=== PATIENT | female | born 1955 | race Caucasian/White ===

== ENCOUNTER 2018-11-04 19:19 | Emergency (ER) | payer SELFPAY ==
[~2018-11-04] VITALS: Ht 170.2 cm; Wt 92.0 kg
[2018-11-04 22:18] VITALS: BP 144/71
== END 2018-11-04 22:22 | disposition home or self-care (01) | DRG 605 ==
LOC: ED 19:19
DX: S80.11XA Contusion of right lower leg, initial encounter (principal); F17.210 Nicotine dependence, cigarettes, uncomplicated; W19.XXXA Unspecified fall, initial encounter; Z86.718 Personal history of other venous thrombosis and embolism

== ENCOUNTER 2019-03-03 13:34 | Emergency (ER) | payer SELFPAY ==
[~2019-03-03] VITALS: Ht 170.2 cm; Wt 90.0 kg
[2019-03-03 15:17] LABS: URINE BILIRUBIN - DIPSTICK NEGATIVE (NEGATIVE); URINE BLOOD DIPSTICK MODERATE (NEGATIVE); URINE COLOR YELLOW; URINE GLUCOSE - DIPSTICK NEGATIVE (NEGATIVE); URINE KETONE NEGATIVE (NEGATIVE); URINE PH 5.5 (4.5-8.0); URINE PROTEIN - DIPSTICK 30 mg/dL (NEG-TRACE)
[2019-03-03 15:20] LABS: HEMATOCRIT 44.4 % (37.0-47.0); HEMOGLOBIN 14.5 g/dl (12.0-16.0); IMMATURE GRANULOCYTES 0.4 % (0.0-5.0); MEAN CELL VOLUME 85.1 fL CALC (80.0-100.0); MEAN CORPUSCULAR HGB 27.8 pG CALC (26.0-32.0); MEAN CORPUSCULAR HGB CONC 32.7 g/L CALC (32.0-36.0); NEUT# 6.07 thou/uL (2.00-7.15); RED BLOOD COUNT 5.22 mill/uL (4.20-5.60); RED CELL DISTRI WIDTH 12.7 % (11.5-15.5)
[2019-03-03 15:20] LABS: URINE LEUK ESTERASE MODERATE (NEGATIVE); URINE NITRITE - DIPSTICK POSITIVE (Negative)
[2019-03-03 15:30] LABS: URINE BACTERIA FEW hpf; URINE SQUAMOUS EPITHELIAL CELL FEW EPI/hpf (0-FEW); URINE WBC TNTC WBC/hpf (0-5)
[2019-03-03 15:33] LABS: ALBUMIN 4.3 g/dL (3.2-5.0); ALKALINE PHOSPHATASE 112 u/l (38-126); ANION GAP 14 (6-22 (CALC)); BILIRUBIN, TOTAL 0.9 mg/dL (0.0-1.4); BUN 18 mg/dL (8-23); BUN/CREATININE RATIO 16 (12-20 (CALC)); CARBON DIOXIDE 24 mmol/l (22-30); CHLORIDE 103 mmol/l (95-108); CREATININE 1.1 mg/dL (0.5-1.0); GFR 50 ML/MIN (>=60 (CALC)); GFR FOR AFR.AMER. > 60 ML/MIN (>=60 (CALC)); SGOT/AST 25 u/l (9-36); SODIUM 136 mmol/l (137-146); TOTAL PROTEIN 7.8 g/dL (6.3-8.2)
[2019-03-03] MEDS ORDERED: METFORMIN500 MG PO (15:49)
[2019-03-03] MEDS ORDERED: KEFLEX500 M1 PO (16:48)
[2019-03-03] MEDS ORDERED: PYRIDIUM200 MG PO (16:56)
[2019-03-03 17:09] VITALS: BP 126/56
== END 2019-03-03 17:20 | disposition home or self-care (01) | DRG 690 ==
LOC: ED 13:34
DX: N39.0 Urinary tract infection, site not specified (principal); E11.9 Type 2 diabetes mellitus without complications; F17.200 Nicotine dependence, unspecified, uncomplicated; B96.20 Unspecified Escherichia coli [E. coli] as the cause of diseases classified elsewhere
CPT/HCPCS: J0131

== ENCOUNTER 2019-05-02 08:59 | Inpatient (IN) | payer SELFPAY ==
[2019-05-02] VITALS (10 sets, daily range): BP systolic 94–105; BP diastolic 39–52
[~2019-05-02] VITALS: Ht 170.2 cm; Wt 95.4 kg
[~2019-05-02 08:59] MED LIST: KEFLEX500 M1 PO; METFORMIN500 MG PO; PYRIDIUM200 MG PO
--- NOTE | 2019-05-02 09:10 | NUR ---
PATIENT TO ROOM VIA WHEELCHAIR AND PHYSICIAN AT BEDSIDE FOR EVAL
[2019-05-02 09:47] LABS: HEMATOCRIT 43.9 % (37.0-47.0); HEMOGLOBIN 14.5 g/dl (12.0-16.0); IMMATURE GRANULOCYTES 0.9 % (0.0-5.0); MEAN CORPUSCULAR HGB 27.4 pG CALC (26.0-32.0); NEUT# 12.23 thou/uL (2.00-7.15); RED BLOOD COUNT 5.29 mill/uL (4.20-5.60); RED CELL DISTRI WIDTH 13.5 % (11.5-15.5)
[2019-05-02 09:59] LABS: ALBUMIN 3.9 g/dL (3.2-5.0); BILIRUBIN, TOTAL 1.4 mg/dL (0.0-1.4); CREATININE 1.2 mg/dL (0.5-1.0); POTASSIUM 4.5 mmol/l (3.5-5.1); TOTAL PROTEIN 7.3 g/dL (6.3-8.2)
--- NOTE | 2019-05-02 10:14 | NUR ---
REPORT RECIEVED FROM TITI BELL. PT STATES HAVING CHILLS AND REQUESTING ANOTHER BLANKET, PT INFORMED OF CARE PLAN, PT UNDERSTOOD AND MEDICATED. NO OTHER COMPLAINTS STATED AT THIS TIME.
--- NOTE | 2019-05-02 10:41 | NUR ---
PT AMBULATED TO RESTROM AND BACK TO ROOM, PT BECAME NAUSEATED WHILE WALKING. STATES FEELING VERY DIZZY
[2019-05-02 11:06] LABS: URINE BILIRUBIN - DIPSTICK NEGATIVE (NEGATIVE); URINE BLOOD DIPSTICK MODERATE (NEGATIVE); URINE COLOR YELLOW; URINE GLUCOSE - DIPSTICK 100 mg/dL (NEGATIVE); URINE KETONE TRACE mg/dL (NEGATIVE); URINE PROTEIN - DIPSTICK 100 mg/dL (NEG-TRACE); URINE SPECIFIC GRAVITY 1.025
[2019-05-02 11:11] LABS: URINE EPITHELIAL CELLS MANY EPI/hpf (0-FEW); URINE LEUK ESTERASE LARGE (NEGATIVE); URINE NITRITE - DIPSTICK POSITIVE (Negative)
[2019-05-02 11:12] LABS: URINE BACTERIA MANY hpf
--- NOTE | 2019-05-02 11:16 | NUR ---
MMD AT BEDSIDE TO DISCUSS RESULTS.
--- NOTE | 2019-05-02 11:39 | NUR ---
PT NOTIFIED OF 1515 OR APPT, MAINTAINING NPO. LAST ORAL INTAKE WAS 0130
--- NOTE | 2019-05-02 11:45 | NUR ---
SCOTT BELLA AT BEDSIDE.
--- NOTE | 2019-05-02 12:08 | NUR ---
REPORT CALLED TO CHRISTINA SHEPPARD RN ACCEPTED PT
--- NOTE | 2019-05-02 12:15 | NUR ---
Admission Note Report Given to: CHRISTINA BELL Transported by: Wheelchair X Stretcher Transported with: X Nurse Transporter X Patent IV O2 Auto Body Mechanic TRANSPORTED TO [facility] [place] WITHOUT INCIDENT
--- NOTE | 2019-05-02 12:21 | NUR ---
REPORT RECEIVED FROM MARA IN ED, PT ARRIVED ON UNIT @ 1212, ALERT AND ORIENTED X 3, C/O DULL ACHING PAIN @ 3/10 TO BILATERAL FLANK AREAS, ORIENTED TO ROOM AND CALL MORRISON. TRANSPORTED VIA STRETCHER AND AMBULATED TO BED, MEDICAL TEAM ROUNDED, PT IS SETTLED IN BED AT THIS TIME.
--- NOTE | 2019-05-02 14:56 | NUR ---
OR STAFF ILIANA RECEIVING PT FOR PROCEDURE, PT AMBULATED TO STRETCHER AND IS BEING TRANSPORTED OFF UNIT AT THIS TIME.
--- NOTE | 2019-05-02 18:59 | NUR ---
TERESITA (RN) REPORTED HE RECEIVED LAB RESULT FROM CORDELL IN LAB OF LACTIC ACID 2.2, PT IN RECOVERY AT THIS TIME, RECOVERY STAFF AWARE OF RESULTS AND ADDRESSING CONDITIOIN.
--- NOTE | 2019-05-02 19:00 | NUR ---
PT RECEIVED FROM OR VIA STRETCHER ACCOMPANIED BY TWO NURSE. PT ASSISTED INTO BED. PT IS FULLY ALERT AND ORIENTED X3. O2 N/C ON AT 3L. O2 SAT 94%. RESP EVEN AND UNLABORED. LUNGS CLEAR BILAT. ABD SOFT AND NONDISTENDED WITH BOWEL SOUNDS PRESENT. MILLIGAN CATH PLACED IN OR DRAINING CLEAR PALE YELLOW URINE. LEG STRAP IN PLACE. NO LOWER EXT EDEMA NOTED. PEDAL PULSES PALPATED BILAT. SCD'S ARE ON BILAT LOWER EXT. IV SITE PATENT IN OUTER ASPECT OF LEFT A.C. NO REDNESS OR SWELLING AT SITE. IVF NSS AT 125CC/HR. PT DENIES ANY NAUSEA. PT DENIES ANY PAIN OR DISCOMFORT AT THIS TIME. VS 99.7-88-18, 100/39. POST OP INSTRUCTIONS GIVEN. PT ENCOURAGED TO COUGH AND DEEP BREATH. TEACHING DONE ON IMPORTANCE OF USING INSENTIVE SPIROMETRY 10X/HR WHILE AWAKE. RETURN DEMONSTRATION DONE AND PT DOES GET UP TO 1000. PT ASSISTED WITH REPOSITIONING FOR COMFORT. FALL BRACELET APPLIED. NURSE REMAINS AT BEDSIDE WITH PT. ORIENTED TO CALL MORRISON. WILL CONTINUE TO CLOSELY MONITOR. CALL MORRISON WITHIN REACH.
--- NOTE | 2019-05-02 19:30 | NUR ---
RESTING IN BED WITH EYES CLOSED. RESP EVEN AND UNLABORED. TEMP 100. WAITING ON 1899 LACTIC ACID RESULTS. IV SITE PATENT. VS Q 15 MIN. FREQUENT ROUNDS MADE. CALL MORRISON WITHIN REACH.
--- NOTE | 2019-05-02 20:00 | NUR ---
PT IS AWAKE. VS 99.3-82-18, 105/46. O2 SAT 93% ON 3L N/C. WHEN PT DOES SLEEP B/P SYSTOLIC IN THE 90'S. WHEN AWAKE SYSTOLIC B/P LOW 100'S. PT DRINKING WATER WITHOUT ANY NAUSEA. RESP EVEN AND UNLABORED. RESP 18. MILLIGAN CONTINUE TO DRAIN . PT COUGHING AND DEEP BREATHING. PT TALKATIVE AND DENIES ANY DISCOMFORT. 1899 LACTIC RESULT 1.0. NSS INFUSING AT 125CC/HR. WILL CONTINUE TO CLOSELY MONITOR. FREQUENT ROUNDS MADE. CALL MORRISON WITHIN REACH.
--- NOTE | 2019-05-02 20:45 | NUR ---
PT WOKE ACCUCHECK 181. SKIN COOL TO TOUCH. TEMP 98.3. RESP EVEN AND UNLABORED. O2 SAT 93-94%. PT DENIES ANY PAIN. HR 80'S. IV SITE PATENT. TOLERATING WATER WITHOUT ANY DIFFICULTY. SCD'S ON. MILLIGAN IS DRAINING MODERATE AMOUNT OF PALE YELLOW URINE. PT IS DROWSY. FREQUENT ROUNDS MADE. VSS. CALL MORRISON WITHIN REACH.
--- NOTE | 2019-05-02 21:25 | NUR ---
PT WOKE. VSS. TEMP 98.8. RESP EVEN AND UNLABORED. VISITORS AT BEDSIDE. PT IS ALERT AND ORIENTED X3. NO DISTRESS NOTED. ENCOURAGED TO USE INSENTIVE SPIROMETRY WHILE AWAKE 10X/HR. FREQUENT ROUNDS MADE. CALL MORRISON WITHIN REACH.
--- NOTE | 2019-05-02 22:20 | NUR ---
PT WOKE. MEDICATED WITH NOVOLOG ONE UNIT S.Q FOR ACCUCHECK OF 181. PT DENIES ANY DISCOMFORT. IV SITE PATENT. VSS. FREQUENT ROUNDS MADE. CALL MORRISON WITHIN REACH.
--- NOTE | 2019-05-02 23:00 | NUR ---
PT WOKE. B/P 105/50, HR 78, RESP 18. O2 SAT 95% ON 3L . RESP EVEN AND UNLABORED. IV SITE PATENT. MILLIGAN IS DRAINING CLEAR PALE YELLOW URINE. PT ASSISTED WITH REPOSITIONING. SCD'S ON. DENIES ANY DISCOMFORT. FREQUENT ROUNDS MADE. WILL CONTINUE TO CLOSELY MONITOR. CALL MORRISON WITHIN REACH.
[2019-05-03] VITALS (8 sets, daily range): BP systolic 96–133; BP diastolic 43–63
--- NOTE | 2019-05-03 00:10 | NUR ---
TEMP 99.9. SKIN WARM. RESP EVEN AND UNLABORED. B/P IS STABLE. O2 SAT 94-96% ON 3L N/C. DENIES ANY DISCOMFORT. IV NSS AT 125CC/HR. WILL CONTINUE TO MONITOR. FREQUENT ROUNDS MADE. CALL MORRISON WITHIN REACH.
--- NOTE | 2019-05-03 01:05 | NUR ---
TEMP 100.5. HR 90. RESP 18. RESP EVEN AND UNLABORED. MEDICATED WITH TYLENOL 650MG P.O FOR FEVER. BLANKET REMOVED AND ONLY SHEET ON. PT TOLERATING LIQUIDS WITHOUT ANY DIFFICULTY. OFFERS NO COMPLAINTS. B/P IS STABLE. WILL CONTINUE TO CLOSELY MONITOR. FREQUENT ROUNDS MADE. CALL MORRISON WITHIN REACH.
--- NOTE | 2019-05-03 02:05 | NUR ---
PT WOKE. TEMP 99.6, HR 80'S, B/P 96/43. O2 SAT 94-95%. RESP EVEN AND UNLABORED. PT OFFERS NO COMPLAINTS. FREQUENT ROUNDS MADE. CALL MORRISON WITHIN REACH.
--- NOTE | 2019-05-03 03:00 | NUR ---
TEMP 98.7. ASSESSMENT UNCHANGED. CALL MORRISON WITHIN REACH.
--- NOTE | 2019-05-03 04:30 | NUR ---
PT RESTING IN BED WITH EYES CLOSED. RESP EVEN AND UNLABORED. NO DISTRESS NOTED. O2 N/C ON AT 3L. IV SITE PATENT. SKIN COOL TO TOUCH. MILLIGAN IS PATENT DRAINING CLEAR ELVIA URINE. FREQUENT ROUNDS MADE. CALL MORRISON WITHIN REACH.
--- NOTE | 2019-05-03 06:15 | NUR ---
RESTING IN BED WATCHING T.V. ASSESSMENT UNCHANGED. RESP EVEN AND UNLABORED. OFFERS NO COMPLAINTS. SCD'S ON. IV SITE PATENT. CALL MORRISON WITHIN REACH.
[2019-05-03 06:25] LABS: IMMATURE GRANULOCYTES 0.4 % (0.0-5.0); MEAN CELL VOLUME 84.6 fL CALC (80.0-100.0); MEAN CORPUSCULAR HGB 27.4 pG CALC (26.0-32.0); MEAN CORPUSCULAR HGB CONC 32.4 g/L CALC (32.0-36.0); NEUT# 3.86 thou/uL (2.00-7.15); RED BLOOD COUNT 4.02 mill/uL (4.20-5.60); RED CELL DISTRI WIDTH 13.6 % (11.5-15.5)
[2019-05-03 06:46] LABS: CREATININE 1.2 mg/dL (0.5-1.0); POTASSIUM 4.3 mmol/l (3.5-5.1)
--- NOTE | 2019-05-03 10:35 | NUR ---
PT SITTING IN RECLINER, NICOTINE PATCH PLACED TO L POSTERIOR SHOLDER. PT VOICES NO NEEDS OR COMPLAINTS AT THIS TIME. ENCOURAGED IS. CALL LIGHT IN REACH,CONTINUE TO MONITOR.
--- NOTE | 2019-05-03 11:44 | NUR ---
PT SITTING IN CHAIR AT BEDSIDE, PT C/O CHILLS. TEMP 100.9 MEDICATED WITH TYLENOL AT THIS TIME. PT ATE LUNCH, TOLERATED WELL. CALL LIGHT IN REACH,CONTINUE TO MONITOR.
--- NOTE | 2019-05-03 12:14 | NUR ---
PT AMBULATING HALLWAY WITH RECEIVABLE CLERK ON 02, TOLERATING WELL, CONTINUE TO MONITOR.
--- NOTE | 2019-05-03 15:02 | NUR ---
PT RESTING IN BED, C/O L FLANK PAIN, MEDICATED PER SEP. CALL LIGHT IN REACH,CONTINUE TO MONITOR.
--- NOTE | 2019-05-03 18:00 | NUR ---
PT RESTING IN BED, NO SIGNS OF DISTRESS NOTED, RESP EVEN AND UNLABORED. CALL LIGHT IN REACH,CONTINUE TO MONITOR.
--- NOTE | 2019-05-03 19:32 | NUR ---
ASSESSMENT COMPLETED. IV SITE PATENT AND INFUSING ORDERED IVF WELL. MILLIGAN CATHETER INTACT AND DRAINING DRAK YELLOW URINE AT GRAVITY LEVEL. SCD'S IN PLACE TO BLE AND I/S AT BEDSIDE AND IS ENCOURAGED TO DEEP BREATHE AND USE EVERY HOUR WHILE AWAKE. SPO2 95% ON 3LITERS/MIN PER NC AND TITRATED TO 2.5LITERS/MIN AT THIS TIME; WILL CONTINUE TO MONITOR. TEMP 101.3 AND C/O OF FONTENOT AND MEDICATED WITH ORDERED PRN TYLENOL; WILL REASSESS. PT. DECLINES TO ALLOW STAFF TO PLACE COOL PACK TO HEAD. ENCOURAGED TO CALL FOR ANY NEEDS. ICE CHIPS PROVIDED AND LEFT ARM ELEVATED ONTO PILLOW TO ASSIST WITH MILD SWELLING TO HAND AND ARM. CALL LIGHT IS IN REACH. WILL CONTINUE TO MONITOR.
--- NOTE | 2019-05-03 20:55 | NUR ---
MILLIGAN CATHETER EMPTIED OF 1900 MLS OF DARK YELLOW URINE AND STRAINED; NO STONES NOTED. TEMP DOWN TO 99.7. WILL CONTINUE TO MONITOR. ACCUCHECK OBTAINED. SCHED MED GIVEN. SNACK PROVIDED. DECLINES WANTING A SHOWER TONIGHT. PT. STATES,"MAYBE IN THE MORNING."
--- NOTE | 2019-05-03 22:05 | NUR ---
PT. RESTING IN BED WITH EYES CLOSED; RESP. EVEN AND UNLABORED; CALL LIGHT IS IN REACH.
--- NOTE | 2019-05-03 23:30 | NUR ---
PT. RESTING IN BED WITH EYES CLOSED ON RA; AWAKENED AND PT. REPORTS THAT THE OXYGEN WAS GIVING HER A FONTENOT SO SHE REMOVED IT. SPO2 86% ON RA. RE-APPLIED AND TITRATED DOWN TO 2LITERS/MIN AND SPO2 NOW UP TO 91%; DENIES NEEDS.WILL CONTINUE TO MONITOR. CALL LIGHT IS IN REACH. WILL CONTINUE TO MONITOR.
--- NOTE | 2019-05-04 01:35 | NUR ---
PT. RESTING IN BED WITH EYES CLOSED; AWAKENED TO ASSESS TEMP AND WNL AT THIS TIME. DENIES NEEDS AND VOICES NO COMPLAINTS. CALL LIGHT IS IN REACH. WILL CONITNUE TO MONITOR.
[2019-05-04 03:45] VITALS: BP 145/65
--- NOTE | 2019-05-04 03:45 | NUR ---
PT. SITTING UP IN BED WATCHING TV, NO DISTRESS NOTED; REMAINS ON 2LITERS/MIN PER NC AND SPO2 91%. VSS; OFFERED SHOWER AND AGAIN PT. DECLINES AT THIS TIME. WARM WASHCLOTH PROVIDED TO WASH FACE. ENCOURAGED TO CALL FOR ANY NEEDS. CATHETER BAG EMPTIED OF 2100 MLS OF DARK YELLOW URINE. COFFEE PROVIDED. CALL LIGHT IS IN REACH. WILL CONTINUE TO MONITOR.
--- NOTE | 2019-05-04 05:18 | NUR ---
TEMP 100.3 AND MEDICATED WITH ORDERED TYLENOL; WILL REASSESS. DENIES NEEDS. CALL LIGHT IS IN REACH.
[2019-05-04 05:25] LABS: HEMATOCRIT 34.8 % (37.0-47.0); HEMOGLOBIN 11.3 g/dl (12.0-16.0); IMMATURE GRANULOCYTES 0.5 % (0.0-5.0); MEAN CELL VOLUME 83.7 fL CALC (80.0-100.0); MEAN CORPUSCULAR HGB 27.2 pG CALC (26.0-32.0); MEAN CORPUSCULAR HGB CONC 32.5 g/L CALC (32.0-36.0); NEUT# 3.07 thou/uL (2.00-7.15); RED BLOOD COUNT 4.16 mill/uL (4.20-5.60); RED CELL DISTRI WIDTH 13.8 % (11.5-15.5)
[2019-05-04 05:42] LABS: ANION GAP 11 (6-22 (CALC)); BUN 14 mg/dL (8-23); BUN/CREATININE RATIO 14 (12-20 (CALC)); CARBON DIOXIDE 20 mmol/l (22-30); CHLORIDE 109 mmol/l (95-108); GFR 56 ML/MIN (>=60 (CALC)); GFR FOR AFR.AMER. > 60 ML/MIN (>=60 (CALC)); MAGNESIUM 1.8 mg/dL (1.6-2.3); SODIUM 135 mmol/l (137-146)
--- NOTE | 2019-05-04 06:25 | NUR ---
MOM GIVEN TO ASSIST WITH BM; NO DISTRESS NOTED; TEMP REASSESSED AND WNL. ENCOURAGED TO CALL FOR ANY NEEDS. CALL LIGHT IS IN REACH.
--- NOTE | 2019-05-04 07:15 | NUR ---
PT RESTING IN BED, NO SIGNS OF DISTRESS NOTED, RESP EVEN AND UNLABORED. PT ALERT AND ORIENTED X3, EDEMA TO BUE HAS REDUCED. PT STATES HER HANDS NO LONGER FEEL TIGHT. DISCUSSED POC, ENCOURAGED AMBULATION. PT ASSISTED TO RECLINER AT BEDSIDE FOR BREAKFAST, MILLIGAN DRAINGING TO GRAVITY, ASSESSMENT COMPLETED, CALL LIGHT IN REACH,CONTINUE TO MONITOR.
[2019-05-04 07:19] VITALS: BP 114/57
--- NOTE | 2019-05-04 08:27 | NUR ---
ASSISTED PT TO BATHROOM FOR BM, INSTRUCTED TO CALL FOR ASSISTANCE.
--- NOTE | 2019-05-04 08:48 | NUR ---
PRELIMINARY BLOOD CULTURE RESULTS CALLED TO AT [phone] @1547. 0 BOTTLE GROWING GRAM (-) CLARK. URINE CULTURE IS GROWING E.COLI SENSITIVE TO ROCEPHIN, INCREASE DOSE TO 2 GRAMS DAILY.
--- NOTE | 2019-05-04 09:30 | NUR ---
PT RESTING IN BED, DISCUSSED ROCEPHIN INCREASE, PT VERBALIZED UNDERSTANDING. CALL LIGHT IN REACH,CONTINUE TO MONITOR.
--- NOTE | 2019-05-04 10:50 | NUR ---
PT ASSISTED TO RECLINER AT BEDSIDE FOR LUNCH, PT VOICES NO NEEDS OR COMPLAINTS AT THIS TIME. MEDICATED WITH 1 UNIT OF INSULIN. CALL LIGHT IN REACH,CONTINUE TO MONITOR.
--- NOTE | 2019-05-04 12:06 | NUR ---
PT IN RECLINER WATCHING TV, NO SIGNS OF DISTRESS NOTED, RESP EVEN AND UNLABORED. CALL LIGHT IN REACH,CONTINUE TO MONITOR.
--- NOTE | 2019-05-04 14:23 | NUR ---
PT SITTING IN RECLINER REQUESTING TO GET BACK IN BED, VISITOR AT BEDSIDE.
[2019-05-04 16:06] VITALS: BP 160/74
--- NOTE | 2019-05-04 16:40 | NUR ---
PT RESTING IN BED, MEDICATED FOR TEMP, PT C/O PAIN 2/10 MEDICATED WITH ULTRAM. CALL LIGHT IN REACH,CONTINUE TO MONITOR.
[2019-05-04 17:03] VITALS: BP 149/78
[2019-05-04 19:09] VITALS: BP 141/74
--- NOTE | 2019-05-04 19:15 | NUR ---
SITTING UP IN BED WITH NO DISTRESS NOTED;DENIES NEEDS/PAIN. CALL LIGHT IS IN REACH.
--- NOTE | 2019-05-04 20:18 | NUR ---
ASSESSMENT COMPLETED. IV SITE PATENT AND INFUSING ORDERED IVF WELL. UPDATED ON POC. MILLIGAN CATHETER INTACT AND DRAINING AT GRAVITY LEVEL. PT. ON RA AND SPO2 WNL AT THIS TIME; WILL CONTINUE TO MONITOR. TEMP 99.6 AT THIS TIME. ENCOURAGED TO CALL FOR ANY NEEDS. CALL LIGHT IS IN REACH. ENCOURAGED TO USE INCENTIVE SPIROMETER. WILL CONTINUE TO MONITOR.
--- NOTE | 2019-05-04 23:05 | NUR ---
RESTING IN BED ASLEEP AND AWAKENED FOR ASSESSMENT OF TEMP, NOW 98.9; WILL CONTINUE TO MONITOR. DENIES NEEDS. CALL LIGHT IS IN REACH.
--- NOTE | 2019-05-05 00:25 | NUR ---
RESTING IN BED WITH EYES CLOSED;RESP. EVEN AND UNLABORED. CALL LIGHT IS IN REACH.
--- NOTE | 2019-05-05 02:30 | NUR ---
PT. AWAKEND AND C/O FONTENOT AND MEDICATED WITH ORDERED PRN ULTRAM; WILL REASSESS. OFFERED SHOWER AND PT. DECLINES. ENCOURAGED TO CALL FOR ANY NEEDS. CALL LIGHT IS IN REACH.
[2019-05-05 03:40] VITALS: BP 147/70
--- NOTE | 2019-05-05 03:45 | NUR ---
VS OBTAINED; O2 IS OFF AND SPO2 IS 85% AND REAPPLIED O2 AND UPT O 92%.TEMP 100.8 AND CONINUES TO C/O FONTENOT AND MEDICATED WITH ORDERED TYLENOL;WILL REASSESS. PT. ASSISTED INTO SHOWER AND LINENS CHANGED; INSTRUCTED TO PULL CORD WHEN FINISHED.
[2019-05-05 04:44] LABS: HEMATOCRIT 35.9 % (37.0-47.0); HEMOGLOBIN 11.7 g/dl (12.0-16.0); IMMATURE GRANULOCYTES 0.8 % (0.0-5.0); MEAN CELL VOLUME 83.3 fL CALC (80.0-100.0); MEAN CORPUSCULAR HGB 27.1 pG CALC (26.0-32.0); MEAN CORPUSCULAR HGB CONC 32.6 g/L CALC (32.0-36.0); NEUT# 2.6 thou/uL (2.00-7.15); RED BLOOD COUNT 4.31 mill/uL (4.20-5.60); RED CELL DISTRI WIDTH 13.8 % (11.5-15.5)
--- NOTE | 2019-05-05 04:48 | NUR ---
REASSESSED TEMP NOW 96.9 AND PT. REPORTS FONTENOT IS BETTER. PT. ASSISTED TO LAY BACK DOWN AND SCD'S RE-APPLIED. PT. DID A SET OF 10 REPS ON INCENTIVE SPIROMETER AND IS ENCOURAGED TO USE. PT. IS ENCOURAGED TO AMBULATE AND DECLINED POST SHOWER REPORTING THAT SHE WAS TIRED AFTER SHOWERING. ENCOURAGED TO CALL FOR ANY NEEDS. CALL LIGHT IS IN REACH. WILL CONTINUE TO MONITOR.
[2019-05-05 05:06] LABS: ANION GAP 10 (6-22 (CALC)); BUN 13 mg/dL (8-23); BUN/CREATININE RATIO 14 (12-20 (CALC)); CARBON DIOXIDE 23 mmol/l (22-30); CHLORIDE 106 mmol/l (95-108); CREATININE 0.9 mg/dL (0.5-1.0); GFR > 60 ML/MIN (>=60 (CALC)); GFR FOR AFR.AMER. > 60 ML/MIN (>=60 (CALC)); SODIUM 135 mmol/l (137-146)
--- NOTE | 2019-05-05 06:39 | NUR ---
PT. C/O RIGHT SIDED ABD PAIN 4/10 AND MEDICATED WITH ORDERED PRN MORPHINE; WILL REASSESS.
--- NOTE | 2019-05-05 06:45 | NUR ---
PT. DENIES NEEDS/PAIN. SITTING UP IN BED WATCHING TV. CALL LIGHT IS IN REACH.
[2019-05-05 07:54] VITALS: BP 125/63
--- NOTE | 2019-05-05 08:20 | NUR ---
ASSESSMENT DONE. PT IS A&O X3. PT DENIES PAIN AT THIS TIME. IVF INFUSING WELL. MILLIGAN IS PATENT WITH YELLOW URINE. PT DENIES NEEDS AT THIS TIME. CALL LIGHT IN REACH.
--- NOTE | 2019-05-05 12:01 | NUR ---
PT IS EATING HER LUNCH WITH NO S/S OF DISTRESS NOTED. PT DENIES ANY NEEDS AT THIS TIME. CALL LIGHT IN REACH.
--- NOTE | 2019-05-05 13:11 | NUR ---
REMOVED PT MILLIGAN AND PT TOLERATED WELL.
[2019-05-05 16:00] VITALS: BP 155/61
--- NOTE | 2019-05-05 16:10 | NUR ---
PT IS RESTING IN BED WITH NO S/S OF DISTRESS NOTED. PT DENIES NEEDS. CALL LIGHT IN REACH.
[2019-05-05 19:35] VITALS: BP 156/76
--- NOTE | 2019-05-05 20:30 | NUR ---
PT MEDICATED ORDERS PROVIDE AND PT ASSESSMENT COMPLETED AT THIS TIME. DENIES N/V AT THIS TIME, BUT REPORTS NAUSEA EARLIER AT SUPPERTIME. PT DENIES TENDERNESS IN ABD AT THIS TIME. C/O HEADACHE AND MEDICATED FOR TEMP 100.8 W/TYLENOL.
--- NOTE | 2019-05-05 23:44 | NUR ---
PT MEDICATED W/IV ANTIBIOTIC THERAPY AT THIS TIME. PT ASSISTED TO BSC AND BACK TO BED. PT DENIES ANY PAIN/N/V AT THIS TIME. CALL LIGHT AT BEDSIDE AND PT ENCOURAGED TO CALL IF ANY NEEDS ARISE. TEMP ASSESSED @96.8
--- NOTE | 2019-05-06 02:15 | NUR ---
PT SLEEPING AT THIS TIME. NO S/O DISTRESS NOTED. CALL LIGHT AT SIDE.
[2019-05-06 04:56] VITALS: BP 149/82
--- NOTE | 2019-05-06 05:00 | NUR ---
PT SLEEPING AT THIS TIME. NO S/O DISTRESS NOTED. AIDE IN W/PT AT THIS TIME.
[2019-05-06 07:59] VITALS: BP 155/59
--- NOTE | 2019-05-06 08:01 | NUR ---
ASSESSMENT DONE. PT IS A&O X3. PT STATED HEADACHE 01/22. MEDICATED PT WITH ULTRAM AND ICE PACK PROVIDED. PT DENIES ANY OTHER NEEDS AT THIS. CALL LIGHT IN REACH.
--- NOTE | 2019-05-06 12:02 | NUR ---
PT IS SITTING IN RECLINER VISITING WITH FAMILY IN ROOM. PT STATED HEADACHE 5/10 BUT DENIES PAIN MEDICATION. PT DENIES NEEDS AT THIS TIME. CALL LIGHT IN REACH.
[2019-05-06 14:30] VITALS: BP 169/75
[2019-05-06 15:58] VITALS: BP 145/74
--- NOTE | 2019-05-06 16:30 | NUR ---
PT IS RESTING IN BED. PT STATED HEADACHE PAIN IS LESS. PT DENIES ANY NEEDS AT THIS TIME. CALL LIGHT IN REACH.
[2019-05-06 19:25] VITALS: BP 137/81
--- NOTE | 2019-05-06 21:00 | NUR ---
PT SLEEPING I ENTERED THE ROOM, BUT AWOKE TO MY VOICE. PT DENIES PAIN/N/V AT THIS TIME. PT MEDICATED ORDERS PROVIDE. PT ASSESSMENT COMPLETED AT THIS TIME. NO S/O DISTRESS NOTED. CALL LIGHT AT SIDE AND PT ENCOURAGED TO CALL NEEDS ARISE.
--- NOTE | 2019-05-07 00:06 | NUR ---
PT MEDICATED ORDERS PROVIDE. PT WAS SLEEPING VERY SOUNDLY I ENTERED THE ROOM, BUT AWOKE TO MY VOICE AND RESPONSDED APPROPRIATELY, PROMTLY FALLING BACK TO SLEEP PRIOR TO MY LEAVING THE ROOM. NO S/O DISTRESS NOTED. IV ANTIBIOTIC THERAPY RUNNING TO 20 IN LAC THAT APPEARS HEALTHY AT THIS TIME. CALL LIGHT AT SIDE.
--- NOTE | 2019-05-07 00:09 | NUR ---
DISCUSSED W/PT REGARDING NEED FOR IV CHANGE, REFUSED AT THIS TIME STATING SHE IS TRYING TO GET A GOOD NIGHTS SLEEP. WILL REVISIT TOPIC W/PT IN AM. SITE FLUSHES WELL AND APPEARS HEALTHY.
[2019-05-07 05:10] VITALS: BP 168/72
[2019-05-07 05:10] LABS: HEMATOCRIT 37.5 % (37.0-47.0); HEMOGLOBIN 12.4 g/dl (12.0-16.0); IMMATURE GRANULOCYTES 0.9 % (0.0-5.0); MEAN CELL VOLUME 81.2 fL CALC (80.0-100.0); MEAN CORPUSCULAR HGB 26.8 pG CALC (26.0-32.0); MEAN CORPUSCULAR HGB CONC 33.1 g/L CALC (32.0-36.0); PLATELET COUNT 187 thou/uL (130-400); RED BLOOD COUNT 4.62 mill/uL (4.20-5.60); RED CELL DISTRI WIDTH 13.8 % (11.5-15.5)
[2019-05-07 05:12] LABS: MANUAL DIFFERENTIAL YES
[2019-05-07 05:19] LABS: ANION GAP 11 (6-22 (CALC)); BUN 13 mg/dL (8-23); BUN/CREATININE RATIO 16 (12-20 (CALC)); CARBON DIOXIDE 24 mmol/l (22-30); CHLORIDE 107 mmol/l (95-108); CREATININE 0.8 mg/dL (0.5-1.0); GFR > 60 ML/MIN (>=60 (CALC)); GFR FOR AFR.AMER. > 60 ML/MIN (>=60 (CALC)); POTASSIUM 3.7 mmol/l (3.5-5.1); SODIUM 138 mmol/l (137-146)
[2019-05-07 05:45] VITALS: BP 154/78
--- NOTE | 2019-05-07 07:00 | NUR ---
REPORT RECEIVED FROM RAY MELISSA. PT RESTING IN RECLINER NO S/S OF DISTRESS AT THIS TIME. SAFETY PRECAUTIONS IN PLACE. WILL CONTINUE TO MONITOR.
[2019-05-07 09:07] VITALS: BP 145/66
--- NOTE | 2019-05-07 09:11 | NUR ---
PT RESTING IN RECLINER, ALERT AND ORIENTED. RESPIRATIONS EVEN AND UNLABORED ON RA. LUNGS SOUND CLEAR. PEDAL PULSES WEAK. PT DENIES ANY PAIN OR DISCOMFORT AT THIS TIME. #20 IN THE LAC, PATENT AND APPEARS HEALTHY. SAFETY PRECAUTIONS IN PLACE. WILL CONTINUE TO MONITOR.
--- NOTE | 2019-05-07 11:36 | NUR ---
PT RESTING IN RECLINER. RESPIRATIONS EVEN AND UNLABORED ON RA. PT DENIES ANY PAIN OR DISCOMFORT AT THIS TIME. SAFETY PRECAUTIONS IN PLACE.
--- NOTE | 2019-05-07 11:49 | NUR ---
MD AT BEDSIDE DISCUSSING PLAN OF CARE.
[2019-05-07] MEDS ORDERED: ROCEPHIN1 G1 IV (11:53)
[2019-05-07] MEDS ORDERED: JANUVIA100 MG PO (11:56)
--- NOTE | 2019-05-07 14:10 | NUR ---
Discharge instructions given. Patient verbalizes understanding of same. Discharged in stable condition via Wheelchair to Home with *Other. All belongings sent with pt.
== END 2019-05-07 14:10 | disposition home health service (06) | DRG 660 ==
LOC: ED 08:59 → ED-I 11:14 → ED 11:29 → MS2 11:30
PROVIDERS: Family Medicine; Nurse Practitioner Family; Urology; ADMIT Internal Medicine; ATTEND Internal Medicine
PROC: 0T778DZ Dilation of Left Ureter with Intraluminal Device, Via Natural or Artificial Opening Endoscopic (ICD-10-PCS; principal; 2019-05-02)
DX: N13.6 Pyonephrosis (principal); N17.9 Acute kidney failure, unspecified; R78.81 Bacteremia; E11.22 Type 2 diabetes mellitus with diabetic chronic kidney disease; N18.9 Chronic kidney disease, unspecified; E11.65 Type 2 diabetes mellitus with hyperglycemia; E66.9 Obesity, unspecified; B96.20 Unspecified Escherichia coli [E. coli] as the cause of diseases classified elsewhere; F17.210 Nicotine dependence, cigarettes, uncomplicated; Z68.32 Body mass index [BMI] 32.0-32.9, adult; Z79.84 Long term (current) use of oral hypoglycemic drugs
CPT/HCPCS: C1769; J0131; J0692; Q9967